=== PATIENT | male | born 1950 | race Caucasian/White ===

== ENCOUNTER 2023-03-28 10:05 | Emergency (ER) | payer MEDICAID ==
[~2023-03-28] VITALS: Ht 170.2 cm; Wt 58.0 kg
[2023-03-28 10:25] VITALS: TEMP 97.7
--- NOTE | 2023-03-28 11:28 | NUR ---
pt with us, attempt ekg after study
[2023-03-28 11:31] LABS: BASOPHILS # (AUTO) 0.1 X10'3 (0-0.2); BASOPHILS % (AUTO) 0.8 % (0-1); EOSINOPHILS # (AUTO) 0.1 X10'3 (0-0.9); EOSINOPHILS % (AUTO) 1.2 % (0-6); HEMATOCRIT 43.6 % (42.0-52.0); HEMOGLOBIN 14.8 g/dl (14.0-17.9); LYMPHOCYTES # (AUTO) 2.3 X10'3 (1.1-4.8); LYMPHOCYTES % (AUTO) 34.1 % (21-51); MEAN CORPUSCULAR HEMOGLOBIN 32.1 PG (27.0-31.0); MEAN CORPUSCULAR VOLUME 94.4 FL (78-98); MEAN PLATELET VOLUME 7.4 FL (7.4-10.4); MONOCYTES # (AUTO) 0.7 X10'3 (0-0.9); NEUTROPHILS # (AUTO) 3.6 X10'3 (1.8-7.7); NEUTROPHILS % (AUTO) 53.9 % (42-75); PLATELET COUNT 263 X10'3 (140-440); RED BLOOD COUNT 4.62 X10'6 (4.70-6.10); RED CELL DISTRIBUTION WIDTH 13.4 % (11.5-14.5); WHITE BLOOD COUNT 6.7 X10'3 (4.5-11.0)
[2023-03-28 11:43] LABS: APTT 26 SECONDS (22-32)
[2023-03-28 11:46] LABS: ALANINE AMINOTRANSFERASE 36 U/L (12-78); ALBUMIN 3.5 G/DL (3.4-5.0); ALKALINE PHOSPHATASE 75 IU/L (46-116); ANION GAP 9 (8-16); ASPARTATE AMINO TRANSFERASE 32 U/L (10-37); BILIRUBIN,TOTAL 0.4 MG/DL (0.1-1.0); BLOOD UREA NITROGEN 17 MG/DL (7-18); CHLORIDE 104 MMOL/L (99-107); CREATININE 1.13 MG/DL (0.60-1.10); GLUCOSE 105 MG/DL (70-104); LIPASE 240 U/L (73-393); POTASSIUM 3.5 MMOL/L (3.5-5.1); SODIUM 142 MMOL/L (135-145); TOTAL CARBON DIOXIDE 28.9 MMOL/L (24-32); TOTAL PROTEIN 6.9 G/DL (6.4-8.2); eGFR 64 ML/MIN
[2023-03-28] MEDS ORDERED: normal saline 1000ml 1,000 ML IV SCH (12:45)
[2023-03-28 13:16] LABS: CLARITY,URINE CLOUDY (Clear); COLOR,URINE YELLOW (Yellow); GLUCOSE, URINE NEGATIVE (Neg); KETONES,URINE NEGATIVE (Neg); LEUKOCYTE ESTERASE ,URINE NEGATIVE (Neg); NITRITES, URINE NEGATIVE (Neg); OCCULT BLOOD,URINE NEGATIVE (Neg); PROTEIN,URINE NEGATIVE (Neg); UROBILINOGEN,URINE 0.2 E.U/dL (0.2-1.0)
[2023-03-28 13:21] LABS: UA COLLECTION TYPE CLN CATCH MIDSTREAM
[2023-03-28 13:23] LABS: MUCUS STRANDS MANY /LPF (Neg)
[2023-03-28 13:24] LABS: HYALINE CASTS 0-3 /LPF (NEGATIVE); SQUAMOUS EPITHELIAL CELL,UR FEW /LPF (FEW)
[2023-03-28 13:25] LABS: CAL OXALATE CRYSTALS FEW /HPF (NEGATIVE); TRANSITIONAL EPI CELLS,URINE FEW /HPF; WBC,URINE 0-4 /HPF (0-4)
[2023-03-28 13:27] LABS: BACTERIA,URINE FEW /HPF (Neg); RBC,URINE 0-2 /HPF (0-2)
[2023-03-28 13:28] LABS: COARSE GRANULAR CAST 0-3 /LPF (NEGATIVE)
[2023-03-28 13:46] VITALS: BP 139/72; PULSE 66; RESP 18; O2SAT 99
== END 2023-03-28 14:49 | disposition home or self-care (01) ==
LOC: ER 10:08
DX: K40.21 Bilateral inguinal hernia, without obstruction or gangrene, recurrent (principal); Z72.89 Other problems related to lifestyle
CPT/HCPCS: 36415; 71045; 74176; 76870; 80053; 81001; 83690; 85025; 85610; 85730; 93005; 93976; 99285; J7030

== ENCOUNTER 2023-10-29 04:21 | Emergency (ER) | payer MEDICAID ==
[~2023-10-29] VITALS: Ht 167.6 cm; Wt 68.2 kg
[2023-10-29 06:50] VITALS: BP 151/81; PULSE 88; RESP 17; TEMP 97.9; O2SAT 97
== END 2023-10-29 12:20 | disposition home or self-care (01) ==
LOC: ER 04:22
DX: M54.9 Dorsalgia, unspecified (principal); Y08.89XA Assault by other specified means, initial encounter; Y93.89 Activity, other specified; Y92.89 Other specified places as the place of occurrence of the external cause; Y99.8 Other external cause status
CPT/HCPCS: 99283

== ENCOUNTER 2023-11-11 03:39 | Emergency (ER) | payer MEDICAID ==
[~2023-11-11] VITALS: Ht 167.6 cm; Wt 70.5 kg
[2023-11-11 03:47] VITALS: BP 127/80; PULSE 84; RESP 16; TEMP 98.8; O2SAT 98
[2023-11-11 05:09] LABS: BASOPHILS # (AUTO) 0.1 X10'3 (0-0.2); BASOPHILS % (AUTO) 1.7 % (0-1); EOSINOPHILS # (AUTO) 0.2 X10'3 (0-0.9); EOSINOPHILS % (AUTO) 2.2 % (0-6); HEMOGLOBIN 13.1 g/dl (14.0-17.9); LYMPHOCYTES # (AUTO) 2.3 X10'3 (1.1-4.8); LYMPHOCYTES % (AUTO) 27.3 % (21-51); MEAN CORPUSCULAR HEMOGLOBIN 31.3 PG (27.0-31.0); MEAN CORPUSCULAR HGB CONC 33.5 g/dL (33.0-36.5); MEAN CORPUSCULAR VOLUME 93.3 FL (78-98); MEAN PLATELET VOLUME 7.5 FL (7.4-10.4); MONOCYTES # (AUTO) 0.6 X10'3 (0-0.9); MONOCYTES % (AUTO) 7.4 % (2-12); NEUTROPHILS # (AUTO) 5.1 X10'3 (1.8-7.7); NEUTROPHILS % (AUTO) 61.4 % (42-75); PLATELET COUNT 231 X10'3 (140-440); RED BLOOD COUNT 4.18 X10'6 (4.70-6.10); RED CELL DISTRIBUTION WIDTH 13.3 % (11.5-14.5); WHITE BLOOD COUNT 8.3 X10'3 (4.5-11.0)
[2023-11-11] MEDS: polymyxin B sulf/tmp ophth drops 10ml EACHEYE SCH (05:15)
[2023-11-11 05:21] LABS: ALBUMIN 3.6 G/DL (3.4-5.0); ANION GAP 13 (8-16); BLOOD UREA NITROGEN 17 MG/DL (7-18); BUN/CREATININE RATIO 14.7 (10.0-20.0); CALCIUM 8.8 MG/DL (8.5-10.1); CHLORIDE 102 MMOL/L (99-107); CREATININE 1.16 MG/DL (0.60-1.10); GLUCOSE 101 MG/DL (70-104); POTASSIUM 4.3 MMOL/L (3.5-5.1); PRO BRAIN NATRIURETIC PEPTIDE 104 PG/ML (0-125); SODIUM 138 MMOL/L (135-145); eCRCL 53 ML/MIN; eGFR 62 ML/MIN
[2023-11-11] MEDS ORDERED: POLOS EACHEYE (05:22)
== END 2023-11-11 07:49 | disposition home or self-care (01) ==
LOC: ER 03:39
DX: H10.33 Unspecified acute conjunctivitis, bilateral (principal); R42 Dizziness and giddiness; Z79.899 Other long term (current) drug therapy
CPT/HCPCS: 36415; 80048; 83880; 84484; 85025; 93005; 99284

== ENCOUNTER 2023-11-30 19:39 | Inpatient (IN) | payer MEDICAID ==
[~2023-11-30] VITALS: Ht 167.6 cm; Wt 65.0 kg
[2023-11-30] MEDS: normal saline 1000ML IV soln IV ONE (20:48)
[2023-11-30 20:50] LABS: BASOPHILS # (AUTO) 0.1 X10'3 (0-0.2); BASOPHILS % (AUTO) 0.7 % (0-1); EOSINOPHILS # (AUTO) 0.5 X10'3 (0-0.9); HEMATOCRIT 40.5 % (42.0-52.0); HEMOGLOBIN 13.7 g/dl (14.0-17.9); LYMPHOCYTES # (AUTO) 2.1 X10'3 (1.1-4.8); LYMPHOCYTES % (AUTO) 28.3 % (21-51); MEAN CORPUSCULAR HGB CONC 33.9 g/dL (33.0-36.5); MEAN CORPUSCULAR VOLUME 94.4 FL (78-98); MEAN PLATELET VOLUME 7.2 FL (7.4-10.4); MONOCYTES # (AUTO) 0.7 X10'3 (0-0.9); PLATELET COUNT 231 X10'3 (140-440); RED BLOOD COUNT 4.29 X10'6 (4.70-6.10); RED CELL DISTRIBUTION WIDTH 13.6 % (11.5-14.5); WHITE BLOOD COUNT 7.3 X10'3 (4.5-11.0)
[2023-11-30 21:08] LABS: ALBUMIN 3.7 G/DL (3.4-5.0); ANION GAP 10 (8-16); BLOOD UREA NITROGEN 15 MG/DL (7-18); BUN/CREATININE RATIO 13.4 (10.0-20.0); CHLORIDE 104 MMOL/L (99-107); CREATININE 1.12 MG/DL (0.60-1.10); GLUCOSE 88 MG/DL (70-104); MAGNESIUM 2.1 MG/DL (1.5-2.4); POTASSIUM 3.8 MMOL/L (3.5-5.1); SODIUM 143 MMOL/L (135-145); TOTAL CARBON DIOXIDE 29.2 MMOL/L (24-32); eCRCL 55 ML/MIN; eGFR 65 ML/MIN
[2023-12-01] MEDS ORDERED: potassium Cl 40MEQ/1/2NS 520ml 520 ML IV PRN (00:05)
[2023-12-01] MEDS ORDERED: potassium Cl 20 mEq SR tablet PO PRN ×2 (00:05)
[2023-12-01] MEDS ORDERED: magnesium hydroxide 30ml (MOM) UD suspension PO PRN (00:05)
[2023-12-01] MEDS ORDERED: magnesium 4gm in 100ml NS 100 ML IV PRN (00:05)
[2023-12-01] MEDS ORDERED: magnesium 2GM in 50ml NS 50 ML IV PRN (00:05)
[2023-12-01] MEDS: normal saline 1000ml 1,000 ML IV SCH (00:05)
[2023-12-01] MEDS ORDERED: HYDROcodone/acetaminophen 5mg/325mg tablet PO PRN (00:05)
[2023-12-01] MEDS ORDERED: mag hydrox/Alum hydrox/simeth 30ml oral suspension PO PRN (00:05)
[2023-12-01] MEDS ORDERED: magnesium Cl slow-release 64mg tablet PO PRN (00:05)
[2023-12-01] MEDS ORDERED: ondansetron/PF 4mg/2ml inj IV PRN (00:05)
[2023-12-01] MEDS ORDERED: acetaminophen 325mg tablet PO PRN ×2 (00:05)
[2023-12-01] MEDS: polymyxin B sulf/tmp ophth drops 10ml EACHEYE SCH (01:36)
[2023-12-01] MEDS: thiamine 100mg/ml 2ml inj. IM SCH (01:36)
[2023-12-01] MEDS: folic acid 1mg tablet PO SCH (01:37)
[2023-12-01 01:55] LABS: HEMOGLOBIN A1C 5.2 % (4.5-6.2)
[2023-12-01 02:00] LABS: FREE T4 (FREE THYROXINE) 0.95 NG/DL (0.73-1.40); MAGNESIUM 1.9 MG/DL (1.5-2.4); POTASSIUM 3.8 MMOL/L (3.5-5.1); THYROID STIMULATING HORMONE 2.34 ulU/ml (0.34-4.50)
[2023-12-01 02:29] VITALS: BP 106/59; PULSE 77; RESP 20; TEMP 98.6; O2SAT 98
[2023-12-01] MEDS: clobetasol propionate ointment 15gm TP SCH (03:30)
[2023-12-01 06:57] VITALS: BP 104/51; PULSE 79; RESP 13; TEMP 97.7; O2SAT 97
[2023-12-01] MEDS: K and/or MAG REPLACEMENT MC SCH (08:00)
[2023-12-01] MEDS ORDERED: thiamine 100mg/ml 2ml inj. IM SCH (08:00)
[2023-12-01 09:00] VITALS: RESP 16; O2SAT 97
[2023-12-01] MEDS: thiamine inj. 500 MG in normal saline 100ml IV soln 100 ML IV SCH (09:10)
[2023-12-01] MEDS: heparin, porcine 5000 units/ml vial SQ SCH (09:10)
[2023-12-01] MEDS: multivitamins, therapeutics tablet PO SCH (09:11)
[2023-12-01 17:00] VITALS: BP 124/62; PULSE 76; RESP 16; TEMP 97.1; O2SAT 97
[2023-12-01] MEDS: thiamine 100mg tablet PO SCH (20:38)
[2023-12-01 22:00] VITALS: BP 113/60; PULSE 69; RESP 20; TEMP 97.9; O2SAT 98
[2023-12-02] MEDS: Permethrin Cream 60gm TP ONE (00:35)
[2023-12-02 06:00] VITALS: BP 107/58; PULSE 69; RESP 16; TEMP 98.5; O2SAT 98
[2023-12-02 07:12] LABS: BASOPHILS # (AUTO) 0.1 X10'3 (0-0.2); BASOPHILS % (AUTO) 0.8 % (0-1); EOSINOPHILS # (AUTO) 0.4 X10'3 (0-0.9); EOSINOPHILS % (AUTO) 6.6 % (0-6); HEMATOCRIT 38.4 % (42.0-52.0); HEMOGLOBIN 12.7 g/dl (14.0-17.9); LYMPHOCYTES # (AUTO) 2.3 X10'3 (1.1-4.8); LYMPHOCYTES % (AUTO) 35.8 % (21-51); MEAN CORPUSCULAR HEMOGLOBIN 31.3 PG (27.0-31.0); MEAN CORPUSCULAR HGB CONC 33.1 g/dL (33.0-36.5); MEAN CORPUSCULAR VOLUME 94.4 FL (78-98); MEAN PLATELET VOLUME 7.2 FL (7.4-10.4); MONOCYTES # (AUTO) 0.6 X10'3 (0-0.9); MONOCYTES % (AUTO) 9.4 % (2-12); NEUTROPHILS % (AUTO) 47.4 % (42-75); PLATELET COUNT 217 X10'3 (140-440); RED BLOOD COUNT 4.06 X10'6 (4.70-6.10); WHITE BLOOD COUNT 6.3 X10'3 (4.5-11.0)
[2023-12-02 07:33] LABS: ALBUMIN 2.9 G/DL (3.4-5.0); ANION GAP 8 (8-16); BLOOD UREA NITROGEN 16 MG/DL (7-18); BUN/CREATININE RATIO 15.7 (10.0-20.0); CALCIUM 8.6 MG/DL (8.5-10.1); CHLORIDE 109 MMOL/L (99-107); CHOL/HDL RATIO 3.5 (0.00-4.99); CHOLESTEROL 152 MG/DL (0-200); CREATININE 1.02 MG/DL (0.60-1.10); GLUCOSE 110 MG/DL (70-104); HDL CHOLESTEROL 44 MG/DL (35-60); LDL CHOLESTEROL 89 MG/DL (50-100); MAGNESIUM 2.2 MG/DL (1.5-2.4); PHOSPHORUS 2.8 MG/DL (2.3-4.5); POTASSIUM 4.1 MMOL/L (3.5-5.1); SODIUM 143 MMOL/L (135-145); TOTAL CARBON DIOXIDE 26.3 MMOL/L (24-32); TRIGLYCERIDES 76 MG/DL (20-135); eCRCL 60 ML/MIN; eGFR 72 ML/MIN
[2023-12-02 09:09] LABS: OSMOLALITY 289 MOSM/K (280-300)
[2023-12-02 11:00] VITALS: BP 110/62; PULSE 72; RESP 16; TEMP 98.5; O2SAT 98
[2023-12-02 20:00] VITALS: RESP 17; O2SAT 97
[2023-12-02 22:00] VITALS: BP 125/71; PULSE 71; RESP 16; TEMP 98.6; O2SAT 97
[2023-12-02 22:34] LABS: URINE AMPHETAMINE SCREEN NEGATIVE (Neg); URINE BARBITUATE SCREEN NEGATIVE (Neg); URINE BENZODIAZEPINES SCREEN NEGATIVE (Neg); URINE CANNABINOID SCREEN NEGATIVE (Neg); URINE COCAINE SCREEN NEGATIVE (Neg); URINE METHADONE SCREEN NEGATIVE (Neg); URINE OPIATE SCREEN NEGATIVE (Neg); URINE PHENCYCLIDINE SCREEN NEGATIVE (Neg)
[2023-12-02 22:49] LABS: BILIRUBIN,URINE NEGATIVE (Neg); CLARITY,URINE CLEAR (Clear); COLOR,URINE YELLOW (Yellow); GLUCOSE, URINE NEGATIVE (Neg); KETONES,URINE NEGATIVE (Neg); LEUKOCYTE ESTERASE ,URINE NEGATIVE (Neg); NITRITES, URINE NEGATIVE (Neg); OCCULT BLOOD,URINE NEGATIVE (Neg); PROTEIN,URINE NEGATIVE (Neg)
[2023-12-02 22:57] LABS: UA COLLECTION TYPE NON-SPECIFIED
[2023-12-03 07:10] VITALS: BP 115/52; PULSE 78; RESP 15; TEMP 97.8; O2SAT 97
[2023-12-03 08:13] LABS: BASOPHILS % (AUTO) 0.8 % (0-1); EOSINOPHILS # (AUTO) 0.2 X10'3 (0-0.9); EOSINOPHILS % (AUTO) 3.2 % (0-6); HEMATOCRIT 39.8 % (42.0-52.0); HEMOGLOBIN 13.4 g/dl (14.0-17.9); LYMPHOCYTES # (AUTO) 2.4 X10'3 (1.1-4.8); LYMPHOCYTES % (AUTO) 42.2 % (21-51); MEAN CORPUSCULAR HEMOGLOBIN 31.5 PG (27.0-31.0); MEAN CORPUSCULAR HGB CONC 33.7 g/dL (33.0-36.5); MEAN CORPUSCULAR VOLUME 93.4 FL (78-98); MEAN PLATELET VOLUME 7.6 FL (7.4-10.4); MONOCYTES # (AUTO) 0.4 X10'3 (0-0.9); MONOCYTES % (AUTO) 7.8 % (2-12); NEUTROPHILS # (AUTO) 2.6 X10'3 (1.8-7.7); PLATELET COUNT 237 X10'3 (140-440); RED BLOOD COUNT 4.27 X10'6 (4.70-6.10); RED CELL DISTRIBUTION WIDTH 13.8 % (11.5-14.5); WHITE BLOOD COUNT 5.6 X10'3 (4.5-11.0)
[2023-12-03 08:17] LABS: ALBUMIN 3.2 G/DL (3.4-5.0); ANION GAP 8 (8-16); BLOOD UREA NITROGEN 17 MG/DL (7-18); BUN/CREATININE RATIO 15.9 (10.0-20.0); CALCIUM 8.6 MG/DL (8.5-10.1); CHLORIDE 105 MMOL/L (99-107); CREATININE 1.07 MG/DL (0.60-1.10); GLUCOSE 94 MG/DL (70-104); MAGNESIUM 2.2 MG/DL (1.5-2.4); PHOSPHORUS 2.8 MG/DL (2.3-4.5); POTASSIUM 3.9 MMOL/L (3.5-5.1); SODIUM 139 MMOL/L (135-145); TOTAL CARBON DIOXIDE 26.3 MMOL/L (24-32); eCRCL 57 ML/MIN; eGFR 68 ML/MIN
[2023-12-03 18:00] VITALS: BP 115/52; PULSE 78; RESP 15; TEMP 97.8; O2SAT 97
[2023-12-03 20:00] VITALS: RESP 15; O2SAT 97
[2023-12-03 22:00] VITALS: BP 119/61; PULSE 71; RESP 16; TEMP 98.6; O2SAT 97
[2023-12-04 06:00] VITALS: BP 121/61; PULSE 64; RESP 18; TEMP 98.2; O2SAT 97
[2023-12-04 07:51] LABS: BASOPHILS # (AUTO) 0.1 X10'3 (0-0.2); BASOPHILS % (AUTO) 0.9 % (0-1); EOSINOPHILS # (AUTO) 0.2 X10'3 (0-0.9); EOSINOPHILS % (AUTO) 2.7 % (0-6); HEMATOCRIT 40.1 % (42.0-52.0); HEMOGLOBIN 13.3 g/dl (14.0-17.9); LYMPHOCYTES # (AUTO) 2.4 X10'3 (1.1-4.8); LYMPHOCYTES % (AUTO) 36.9 % (21-51); MEAN CORPUSCULAR HEMOGLOBIN 31.4 PG (27.0-31.0); MEAN CORPUSCULAR HGB CONC 33.3 g/dL (33.0-36.5); MEAN CORPUSCULAR VOLUME 94.3 FL (78-98); MONOCYTES # (AUTO) 0.5 X10'3 (0-0.9); MONOCYTES % (AUTO) 7.6 % (2-12); NEUTROPHILS # (AUTO) 3.3 X10'3 (1.8-7.7); NEUTROPHILS % (AUTO) 51.9 % (42-75); PLATELET COUNT 223 X10'3 (140-440); RED BLOOD COUNT 4.25 X10'6 (4.70-6.10); RED CELL DISTRIBUTION WIDTH 14.2 % (11.5-14.5); WHITE BLOOD COUNT 6.4 X10'3 (4.5-11.0)
[2023-12-04 08:00] VITALS: RESP 18; O2SAT 97
[2023-12-04 08:07] LABS: ALBUMIN 3.2 G/DL (3.4-5.0); ANION GAP 8 (8-16); BLOOD UREA NITROGEN 20 MG/DL (7-18); BUN/CREATININE RATIO 19.8 (10.0-20.0); CALCIUM 8.5 MG/DL (8.5-10.1); CHLORIDE 103 MMOL/L (99-107); CREATININE 1.01 MG/DL (0.60-1.10); GLUCOSE 102 MG/DL (70-104); MAGNESIUM 1.9 MG/DL (1.5-2.4); PHOSPHORUS 2.7 MG/DL (2.3-4.5); POTASSIUM 4.1 MMOL/L (3.5-5.1); SODIUM 137 MMOL/L (135-145); TOTAL CARBON DIOXIDE 26.5 MMOL/L (24-32); eCRCL 61 ML/MIN; eGFR 73 ML/MIN
== END 2023-12-04 10:40 | disposition home or self-care (01) | DRG 58 ==
LOC: ER 19:39 → ED HOLD 12-01 00:08 → ORTHO 4S 12-01 01:57
PROVIDERS: ADMIT Student in an Organized Health Care Education/Training Program; ATTEND Internal Medicine
DX: D32.0 Benign neoplasm of cerebral meninges (principal); H10.33 Unspecified acute conjunctivitis, bilateral; M27.40 Unspecified cyst of jaw; N18.2 Chronic kidney disease, stage 2 (mild); Z59.00 Homelessness unspecified
CPT/HCPCS: 36415; 70450; 70551; 71045; 80048; 80061; 80305; 81003; 83036; 83605; 83735; 83930; 84100; 84132; 84145; 84439; 84443; 84484; 85025; 87040; 87081; 93005; 99285; G0378; J1644; J3411; J3490; J7030